=== PATIENT | female | born 1995 | race Caucasian/White ===

== ENCOUNTER 2021-05-29 10:23 | Emergency (ER) | payer OTHER ==
[~2021-05-29] VITALS: Ht 160 cm; Wt 59.1 kg
[2021-05-29] MEDS ORDERED: IBUPROFEN 400 MG TABLET PO ONE (12:00)
[2021-05-29 12:25] VITALS: BP 120/73
== END 2021-05-29 13:48 | disposition home or self-care (01) ==
LOC: EMS 10:23
DX: S90.112A Contusion of left great toe without damage to nail, initial encounter (principal); W01.0XXA Fall on same level from slipping, tripping and stumbling without subsequent striking against object, initial encounter; Y93.89 Activity, other specified; Y92.89 Other specified places as the place of occurrence of the external cause; Y99.8 Other external cause status
CPT/HCPCS: 99283